=== PATIENT | male | born 1995 | race Caucasian/White ===

== ENCOUNTER → 2020-03-12 11:08 | Outpatient (CLI) | payer OTHER, SELFPAY ==
[2020-03-13 02:51] LABS: COVID19 Sendout Not Detected (Not Detect)
== END ==
PROVIDERS: Visit Provider Physician Assistant
DX: Z11.59 Encounter for screening for other viral diseases (principal); Z01.812 Encounter for preprocedural laboratory examination
CPT/HCPCS: 87635

== ENCOUNTER → 2020-09-14 13:02 | Outpatient (CLI) | payer OTHER, MEDICAID, SELFPAY ==
[2020-09-14 13:29] LABS: COVID19 -Nasal RAPID Negative (Negative)
== END ==
PROVIDERS: PCP Family Medicine; Visit Provider Physician Assistant
DX: J06.9 Acute upper respiratory infection, unspecified (principal); Z20.828 Contact with and (suspected) exposure to other viral communicable diseases
CPT/HCPCS: 87070; 87635

== ENCOUNTER → 2021-03-31 09:08 | Outpatient (CLI) | payer OTHER, MEDICAID, SELFPAY ==
[2021-03-31 12:39] LABS: COVID19 -Nasal RAPID Negative (Negative)
== END ==
PROVIDERS: PCP Family Medicine; Visit Provider Physician Assistant
DX: Z20.822 Contact with and (suspected) exposure to COVID-19 (principal)
CPT/HCPCS: 87635

== ENCOUNTER 2023-04-04 11:25 | Emergency (ER) | payer OTHER, SELFPAY ==
[2023-04-04 11:26] VITALS: BP 126/73; PULSE 72; RESP 18; TEMP 36.6; O2SAT 97; BMI 31.7
[2023-04-04 11:32] VITALS: PULSE 87
[2023-04-04] MEDS: LIDOCAINE 2% W/EPI INJ 20 ML INJ (11:46)
--- NOTE | 2023-04-04 11:47 | ED_ITS ---
HPI - Extremity Injury (Upper) General Chief Complaint: Extremity Injury, Upper Stated Complaint: thinks he needs stitches Time Seen by Provider: 04/04/23 11:27 Source: patient Mode of arrival: Ambulatory History of Present Illness HPI narrative: 27-year-old male fully immunized without chronic medical history presents with a chief complaint of an accidental laceration to his right arm just above the elbow. He was working with a large glass window when it broke and a shard cut his arm. His tetanus is up-to-date. He does have some bleeding but denies any numbness, tingling weakness. Related Data Home Medications Medication Instructions Recorded Confirmed No Known Home Medications 09/14/20 09/14/20 Allergies Allergy/AdvReac Type Severity Reaction Status Date / Time No Known Drug Allergies Allergy Unverified 09/14/20 12:57 Review of Systems Review of Systems Narrative: GENERAL: Denies chills, fatigue, malaise, fever, sweats. HEENT: Denies sinus pain, ear pain, sore throat, difficulty swallowing, dizziness. RESPIRATORY: Denies dyspnea, cough, wheezing, hemoptysis, sputum. CARDIOVASCULAR: Denies chest pain, palpitations, orthopnea, edema, GASTROINTESTINAL: Denies nausea, vomiting, abdominal pain, diarrhea, constipation, melena. : Denies dysuria, frequency, incontinence, hematuria, urinary retention. MUSCULOSKELETAL: denies weakness, joint pain, or bony pain SKIN: See HPI NEUROLOGIC: Denies weakness, headache, numbness, change in speech, confusion, seizures, incoordination. PSYCHIATRIC: No concerning psychosocial issues. 12 point review of systems is negative except for those stated above Patient History Medical History URI (upper respiratory infection) Exam Narrative Exam Narrative: GEN: AOx3 and in mild distress EYES: Pupils are equal, round, and reactive to light and accommodation. Ext raoccular muscles are intact bilaterally. There is no subconjunctival hemorrhage or exudate. CHEST: Lungs are clear to auscultation bilaterally and free of wheezes, rales, or rhonchi. Heart rate is regular rhythm, there are no murmurs, clicks, rubs, or gallops. There is no chest wall tenderness. ABD: Abdomen is soft and nontender. There is no guarding or rebound. Bowel sounds are normal in all 4 quadrants. There is no mass or organomegaly. EXT: 3 cm laceration just proximal to the elbow on the dorsal side of the arm, there is a small amount of active bleeding, no evidence of foreign body, no tendon or bone involvement. Full painless ROM of all extremities with no loss of sensation or strength. SKIN: Warm, pink, and dry. No erythema or rash Initial Vital Signs Initial Vital Signs: Vital Signs Temperature 97.9 F 04/04/23 11:26 Pulse Rate 72 04/04/23 11:26 Respiratory Rate 18 04/04/23 11:26 Blood Pressure 126/73 04/04/23 11:26 Pulse Oximetry 97 04/04/23 11:26 Oxygen Delivery Method Room Air 04/04/23 11:26 Procedures Laceration Repair Laceration 1: Site: upper extremity Side (If applicable): right Size (cm): 3 Description: linear Depth: simple, single layer Local Anesthetic: lidocaine 2% and with epi Amount of anesthesia used (mL): 4 Pre-repair: wound explored and cleansed with chlorhexadine Skin layer closed with: nylon Skin layer suture size: 4-0 Number of sutures: 7 Technique: simple, interrupted and horizontal mattress Subcutaneous layer closed with: vicryl Subcutaneous layer suture size: 4-0 Number of sutures: 1 Technique: simple, interrupted Course Orders Ordered: Discontinued Medications Lidocaine/Epinephrine (Lidocaine 2% W/Epi Inj) 20 ml INJ NOW ONE Stop: 04/04/23 11:46 Last Admin: 04/04/23 11:46 Dose: 20 ml Documented By: RB Vital Signs Vital signs: Vital Signs - 8 hr 04/04/23 11:26 04/04/23 11:32 Temperature 97.9 F Pulse Rate 72 Pulse Rate [Right Radial] 87 Respiratory Rate 18 Blood Pressure 126/73 Pulse Oximetry 97 Oxygen Delivery Method Room Air MDM - Extremity Injury (Upper) MDM Narrative Medical decision making narrative: 27-year-old male with laceration of arm just prior to arrival, neurovascularly intact, no evidence of foreign body, tetanus up-to-date, 1 deep suture and 7 in the skin placed, hemostasis achieved, no indication for antibiotics. Patient encouraged to have sutures removed in 10-14 days. Given typical wound care instructions and return precautions Discharge Plan Departure Patient Disposition: Home Clinical Impression: Laceration of arm, right, complicated Instructions: DI for Laceration Repair Activity Restrictions/Additional Instructions: *You have been diagnosed with [right arm laceration] *What to do: *Please continue to take your regular medications as directed. Please keep the wound clean and dry to the best of your ability. Please monitor for signs of infection such as redness to the skin or increasing pain. Have the sutures/leticia removed by your doctor in about 10-14 days. If you are unable to get into your doctor, we would be happy to remove the sutures/leticia in that same timeframe. *Return to Emergency Department if you should have any new, worsening or concerning symptoms, such as [fever greater than 101 F, shaking chills, worsening pain, persistent vomiting or other bothersome symptoms] Prescriptions: No Action No Known Home Medications Referrals: Rebel Willis MD [Primary Care Provider] - Stand Alone Forms: Patient Portal/API
== END 2023-04-04 11:51 | disposition home or self-care (01) ==
PROVIDERS: Emergency Provider Emergency Medicine; PCP Family Medicine
DX: S41.111A Laceration without foreign body of right upper arm, initial encounter (principal); W25.XXXA Contact with sharp glass, initial encounter
CPT/HCPCS: 12002; 99283